=== PATIENT | female | born 1970 | race American Indian/Alaskan Native ===

== ENCOUNTER 2020-01-29 12:04 | Emergency (ER) | payer SELFPAY ==
[2020-01-29 12:14] VITALS: BP 200/91
--- NOTE | 2020-01-29 12:38 | Emergency Department Report ---
Upper Extremity - HPI Chief Complaint: Extremity Problem,Nontraumatic Stated Complaint: RT HAND PAIN/HTN Time Seen by Provider: 01/29/20 12:22 Upper Extremity: Right Ring Finger, Right Little Finger Occurred When: >5 Days (2 weeks) Mechanism: Other (Chronic pain due to previous injury) Severity: moderate Symptoms: Yes Pain with Movement, Yes Limited Range of Movement, No Numbness, No Weakness Other History: 49-year-old female presents to ED via EMS with right hand pain. Patient states pain has been ongoing x2 weeks. Patient states several years ago she broke the bones of the fourth and fifth fingers on the right hand. Patient states she periodically will get pain in those 2 fingers that radiates up into the forearm, which is what she has been experiencing over the last 2 weeks. Patient denies any recent injury or trauma. Of note, EMS reports patient is hypertensive. Patient reports history of hypertension and has been out of her medication x1 week. She denies any headache, dizziness, chest pain, shortness of breath. ED Review of Systems ROS: Stated complaint: RT HAND PAIN/HTN Other details as noted in HPI Comment: All other systems reviewed and negative Respiratory: denies: shortness of breath Cardiovascular: denies: chest pain Musculoskeletal: as per HPI Neurological: denies: headache ED Past Medical Hx - Past Medical History Hx Hypertension: Yes Hx Psychiatric Treatment: Yes (Bipolar, Schziophrenia) - Surgical History Past Surgical History?: No - Social History Smoking Status: Current Every Day Smoker Substance Use Type: Alcohol - Medications Home Medications: Home Medications Medication Instructions Recorded Confirmed Last Taken Type Losartan/Hydrochlorothiazide 1 each PO DAILY 01/29/20 01/29/20 Unknown History [Losartan-Hctz 100-25 mg Tab] amLODIPine 10 mg PO DAILY 01/29/20 01/29/20 Unknown History Upper Extremity Exam - Exam General: Vital signs noted. No distress. Alert and acting appropriately. Head and Torso: No HEENT Abnormality, No Chest/Lungs Abnormality Shoulder Exam: Yes Normal Range of Motion in Shoulder, No Shoulder Tenderness, No Clavicle Tenderness, No Shoulder Deformity Arm Exam: No Arm Deformity Elbow: Yes Normal Range of Motion in Elbow, No Elbow Tenderness Forearm: Yes Forearm Tenderness (right), No Forearm Deformity Wrist: Yes Wrist Tenderness (right), Yes Normal ROM in Wrist, No Wrist Deformity Hand: Yes Hand Tenderness (ulnar aspect) CMS Exam: Yes Normal Distal Pulses, Yes Normal Capillary Refill, Yes Normal Distal Sensation, No Broken Skin ED Course Vital Signs 01/29/20 01/29/20 12:12 12:29 Temperature 98.8 F Pulse Rate 51 L Respiratory 17 17 Rate Blood Pressure 200/91 [Left] O2 Sat by Pulse 100 Oximetry ED Medical Decision Making - Medical Decision Making 49-year-old female presents via EMS for chronic right hand pain. It is incidentally noted that patient has hypertensive, she reports she has been out of her meds x1 week. Patient is experiencing asymptomatic hypertension. She does not currently have a emergent medical condition at this time. Patient will be referred for outpatient follow-up. Critical care attestation.: If time is entered above; I have spent that time in minutes in the direct care of this critically ill patient, excluding procedure time. ED Disposition Clinical Impression: Right hand pain, Hypertension Disposition: MED SCREENING EXAM-LEFT Is pt being admited?: No Condition: Stable Instructions: Hypertension (ED), Arthralgia (ED) Referrals: LANRE EDOUARD MD [Staff Physician] - 3-5 Days [facility] [Provider Group] - 3-5 Days Time of Disposition: 12:38
== END 2020-01-29 12:59 | disposition left against medical advice (07) ==
LOC: ED 12:04
DX: M79.641 Pain in right hand (principal); I10 Essential (primary) hypertension; F17.200 Nicotine dependence, unspecified, uncomplicated; F25.0 Schizoaffective disorder, bipolar type; Z79.899 Other long term (current) drug therapy
CPT/HCPCS: 99283